=== PATIENT | male | born 1960 | race American Indian/Alaskan Native ===

== ENCOUNTER 2020-07-30 00:08 | Emergency (ER) | payer OTHER ==
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
[2020-07-30 02:32] LABS: Hematocrit 39.1 % (35.5-45.6); Hemoglobin 13.3 gm/dl (11.8-15.2)
[2020-07-30 02:42] LABS: BUN/Creatinine Ratio 10; Blood Urea Nitrogen 8 mg/dL (9-20); Calcium 9.9 mg/dL (8.4-10.2); Hemolysis Index 5
--- NOTE | 2020-07-30 09:05 | Emergency Department Report ---
HPI - General Chief Complaint: Medical Clearance Time Seen by Provider: 07/30/20 08:50 - HPI HPI: 60-year-old male with history of opioid abuse disorder, presents to emergency department with concern for opioid withdrawal. Patient has nausea vomiting and diarrhea. He reports some mild abdominal pain. Patient denies homicidal or suicidal ideations. Patient does state that he snorted heroin approximately 3 days ago. Patient's provided some additional history. She states that he was attempted to stop using heroin but relapsed over the . She thinks that he is in withdrawal. The patient denies any fevers chills cough. He has not had any COVID-19 positive contacts that he is aware of . He also denies any chest pain. Apparently the patient has a history of a slow heart rate but per patient and his he does not currently take any medications for any heart conditions. ED Past Medical Hx - Social History Smoking Status: Unknown if ever smoked Substance Use Type: Heroin ED Review of Systems ROS: Stated complaint: DRUG USE Other details as noted in HPI Physical Exam - Physical Exam Vital Signs: Vital Signs 07/30/20 01:11 Temperature 97.7 F Pulse Rate 46 L Respiratory 20 Rate Blood Pressure 160/76 O2 Sat by Pulse 100 Oximetry ED Course Vital Signs 07/30/20 01:11 Temperature 97.7 F Pulse Rate 46 L Respiratory 20 Rate Blood Pressure 160/76 O2 Sat by Pulse 100 Oximetry ED Medical Decision Making - Lab Data Result diagrams: 07/30/20 02:07 07/30/20 02:07 Critical care attestation.: If time is entered above; I have spent that time in minutes in the direct care of this critically ill patient, excluding procedure time. ED Disposition Condition: Stable Referrals: PRIMARY CARE [Primary Care Provider] - 3-5 Days
--- NOTE | 2020-07-30 09:12 | Emergency Department Report ---
ED General Adult HPI - General Chief complaint: Medical Clearance Stated complaint: DRUG USE PUI?: No Time Seen by Provider: 07/30/20 08:50 Source: patient, EMS Mode of arrival: Wheelchair Limitations: Other - History of Present Illness Initial comments: 60-year-old male with past medical history of opioid abuse disorder who presents emergency department complaint of nausea vomiting and diarrhea. Patient has a history of opioid withdrawal. Patient reports that he last used heroin via snorting approximately 3 days ago. Since then he has had the symptoms. I also spoke with patient's who provided additional history. She states that the patient had been clean for a bit from heroin however started using over Thanksg iving. She does not think he is used less than an this appears to be opioid withdrawal which she has gone through before. She also states that he has a history of a low heart rate but she does not think he takes any medications for any heart problems are medications or any other issues. The patient patient denies any chest pain, shortness of breath. He has not had fevers. He denies contact with anyone who has tested positive for COVID-19. - Related Data Home Medications Medication Instructions Recorded Confirmed Last Taken No Known Home Medications [No 07/30/20 07/30/20 Unknown Reported Home Medications] Allergies Allergy/AdvReac Type Severity Reaction Status Date / Time No Known Allergies Allergy Unverified 07/30/20 00:50 ED Review of Systems ROS: Stated complaint: DRUG USE Other details as noted in HPI Constitutional: denies: fever Eyes: denies: eye pain ENT: denies: ear pain Respiratory: denies: cough Cardiovascular: denies: chest pain Endocrine: denies: excessive sweating Gastrointestinal: abdominal pain, nausea, vomiting, diarrhea Genitourinary: denies: dysuria Musculoskeletal: denies: back pain Skin: denies: rash Neurological: weakness. denies: numbness Psychiatric: denies: depression Hematological/Lymphatic: denies: easy bleeding ED Past Medical Hx - Social History Smoking Status: Unknown if ever smoked Substance Use Type: Heroin - Medications Home Medications: Home Medications Medication Instructions Recorded Confirmed Last Taken Type No Known Home Medications [No 07/30/20 07/30/20 Unknown History Reported Home Medications] ED Physical Exam - General Limitations: Other General appearance: alert - Head Head exam: Present: atraumatic, normocephalic - Eye Eye exam: Present: normal appearance - ENT ENT exam: Present: normal exam - Neck Neck exam: Present: normal inspection - Respiratory Respiratory exam: Absent: respiratory distress - Cardiovascular Cardiovascular Exam: Present: bradycardia - GI/Abdominal GI/Abdominal exam: Present: soft, tenderness (mild, diffuse). Absent: distended, guarding, rebound, rigid - Rectal Rectal exam: Present: deferred - Extremities Exam Extremities exam: Present: normal inspection - Back Exam Back exam: Present: normal inspection - Neurological Exam Neurological exam: Present: alert, oriented X3 - Psychiatric Psychiatric exam: Present: flat affect. Absent: homicidal ideation, suicidal ideation - Skin Skin exam: Present: warm, dry, intact ED Course Vital Signs 07/30/20 07/30/20 07/30/20 01:11 09:14 10:18 Temperature 97.7 F 97.8 F Pulse Rate 46 L 51 L Respiratory 20 18 18 Rate Blood Pressure 160/76 Blood Pressure 149/76 [Left] O2 Sat by Pulse 100 100 100 Oximetry 07/30/20 12:58 Temperature Pulse Rate 48 L Respiratory 18 Rate Blood Pressure Blood Pressure 146/76 [Left] O2 Sat by Pulse 100 Oximetry - Reevaluation(s) Reevaluation #1: 07/30/20 13:14 Patient still complains of nausea/vomiting. Abdominal exam is benign. Neuro exam is benign. He has not tolerated PO. He has received phenergan and zofran. 07/30/20 13:32 Reevaluation #2: 07/30/20 14:32 Patient not tolerating PO still complaining of nausea. - Consultations Consultation #1: 07/30/20 09:[address] head imaging done at [address] Julio, Radiology. He states that these appear to be calcifications, not intracranial hemorrhage. ED Medical Decision Making - Lab Data Result diagrams: 07/30/20 09:39 07/30/20 02:07 - EKG Data -: EKG Interpreted by Me EKG shows normal: axis, QRS complexes, ST-T waves Rate: bradycardia (40) - Medical Decision Making Patient is a 60-year-old male who presents to the emergency department with complaint of nausea vomiting and diarrhea in the setting of recent heroin use and likely opioid withdrawal. Patient is undergoing medical screening and has had labs and an EKG right to my evaluation. Patient's EKG is notable for sinus bradycardia and patient is bradycardic to the 40s on my exam. Plan to treat patient symptoms of opiate withdrawal, repeat vitals, plans for normal elec trolytes. Patient's heart rate improves, symptoms improved patient likely to be cleared for possible psychiatric admission for his substance abuse disorder. At this time patient denies any homicidal or suicidal ideations. Critical care attestation.: If time is entered above; I have spent that time in minutes in the direct care of this critically ill patient, excluding procedure time. ED Disposition Clinical Impression: Intractable nausea and vomiting Disposition: OP ADMIT IP TO THIS HOSP Is pt being admited?: Yes Does the pt Need Aspirin: No Condition: Stable Referrals: PRIMARY CARE, [Primary Care Provider] - 3-5 Days
[2020-07-30] MEDS ORDERED: SODIUM CHLORIDE 0.9% 500 ML 500 ML IV ONE (09:30)
[2020-07-30] MEDS ORDERED: ONDANSETRON 4 MG/2 ML INJ IV ONE (09:35)
[2020-07-30] MEDS ORDERED: POTASSIUM CHLORIDE ER 20 MEQ TAB PO ONE (09:44)
[2020-07-30 09:55] LABS: Basophils % (Auto) 0.2 % (0.0-1.8); Hematocrit 40.1 % (35.5-45.6); Hemoglobin 13.7 gm/dl (11.8-15.2); Lymphocytes # (Auto) 1.2 K/mm3 (1.2-5.4); Lymphocytes % (Auto) 10.2 % (13.4-35.0); Mean Corpuscular HGB Conc 34 % (32-34); Mean Corpuscular Volume 87 fl (84-94); Monocytes # (Auto) 0.3 K/mm3 (0.0-0.8); Monocytes % (Auto) 2.2 % (0.0-7.3); Platelet Count 286 K/mm3 (140-440); Red Blood Count 4.63 M/mm3 (3.65-5.03); Red Cell Distribution Width 13.8 % (13.2-15.2)
[2020-07-30 10:01] LABS: INR 1.03 (0.87-1.13)
[2020-07-30] MEDS ORDERED: SODIUM CHLORIDE 0.9% 1000 ML 1,000 ML ONE (10:12)
[2020-07-30] MEDS ORDERED: PROMETHAZINE 25 MG TAB PO ONE (11:01)
[2020-07-30 13:51] LABS: Cannabinoid Screen,Urine Negative; Cocaine Screen,Urine Negative; Methadone Screen,Urine Negative; Opiate Screen,Urine Negative
[2020-07-30 13:52] LABS: Bilirubin,Urine NEG (Negative); Blood,Urine NEG (Negative); Color,Urine Yellow (Yellow); Mucus,Urine 3+ /HPF; Urobilinogen,Urine < 2.0 mg/dL (<2.0)
[2020-07-30 14:14] LABS: Amphetamine Screen,Urine Positive
[2020-07-30 14:22] LABS: Benzodiazepines Screen,Urine PRESUMPTIVE POSITIVE
[2020-07-30 15:57] VITALS: BP 160/82
[2020-07-30] MEDS ORDERED: POTASSIUM CHLORIDE ER 20 MEQ TAB PO NR (16:02)
== END 2020-07-30 16:27 | disposition admitted as inpatient to this hospital (09) ==
LOC: ED 00:08
DX: R11.2 Nausea with vomiting, unspecified (principal); R19.7 Diarrhea, unspecified
CPT/HCPCS: 36415; 70450; 72125; 80048; 80307; 81001; 82550; 83690; 83735; 84484; 85014; 85018; 85025; 85049; 85610; 93005; 96374; 99285; J2405; J7030; Q0169; 80320; G0480